=== PATIENT | male | born 2000 | race Two or more races ===

== ENCOUNTER 2023-08-26 05:44 | Observation (INO) ==
--- NOTE | 2023-08-26 06:29 | Emergency Department Note ---
Impression & Plan Acute appendicitis, Abdominal pain ED Provider Note NAME: QUYEN TELLES AGE: 23 SEX: M : 2000 ARRIVES VIA: Walk-In INFORMANT: Patient ED PROVIDER(S): Fawad Tiwari DO CHIEF COMPLAINT: abdominal pain HPI: Patient is a 23-year-old male who presents to the ER for right lower quadrant abdominal pain which started last night around 9 PM. Worse with twisting, turning, and bending. Denies any headache or change in vision. No chest pain or shortness of breath. Does have some nausea but no vomiting. No dysuria, urgency, or frequency. No previous abdominal surgeries. No other exacerbating or remitting factors. ADDITIONAL HISTORY OBTAINED: Per HPI Chronic Medical/Social Conditions Affecting Care: Per HPI PAST MEDICAL HISTORY:See Below PAST SURGICAL HISTORY:See Below FAMILY HISTORY:See Below SOCIAL HISTORY:See Below HOME MEDICATIONS:See Below ALLERGIES:See Below VITALS:See Below PHYSICAL EXAMINATION: GENERAL: Sitting up in bed, alert, well appearing, well nourished, no distress, non-toxic EYE EXAM: normal conjunctiva. OROPHARYNX:mucous membranes are moist NECK: supple, no nuchal rigidity, no adenopathy, non-tender LUNGS: Clear to auscultation. Normal chest wall mechanics HEART: no murmurs, S1 normal and S2 normal ABDOMEN: abdomen soft, TTP in RLQ, normo-active bowel sounds, no masses, no rebound or guarding. UPPER EXTREMITIES: upper extremities are grossly normal. LOWER EXTREMITIES: No pitting edema. NEURO EXAM: Normal sensorium, cranial nerves II-XII grossly intact, normal speech, no gross weakness of arms, no gross weakness of legs. MEDICAL DECISION MAKING: Patient is a 23-year-old male who presents ER for right lower quadrant abdominal pain which started as described above. IV was established blood work was obtained. Labs show no significant leukocytosis or anemia. BMP with a slightly elevated glucose at 112. LFTs bilirubin was unremarkable. Lipase was normal. UA was clean. CT abdomen pelvis shows acute appendicitis. Patient was given IV fluids and antibiotics. Patient was discussed with general surgery and will be admitted for further workup and taken to the OR by general surgery. Patient was also given IV Toradol. Consults/Care Managements Discussions: Per [facility] Triage Nursing notes reviewed. Limited review of prior medical records performed Vital Signs: reviewed and remarkable for no significant abnormalities Differential diagnosis: Differential diagnoses includes but is not limited to gastritis, peptic ulcer disease, GERD, gallbladder disease, pancreatitis, small bowel obstruction, appendicitis, diverticulitis, hernia, urinary tract infection, torsion, perforation, trauma, infectious. ER treatment provided: See below Diagnostics interpreted by me include EKG and cardiac monitoring as listed below: -Cardiac Monitoring: An order was placed for continuous cardiac monitoring. The monitor shows a rate of 70 with sinus rhythm. -ECG: none -Laboratory studies:Interpreted by me as stated above in MDM and shown below. Imaging studies: Xrays: As interpreted by me:none CTs show: CT abdomen pelvis per my preliminary interpretation showed acute appendicitis CT abdomen pelvis per radiology showed appendicitis Procedures:none Critical Care: None Past Med/Surg History Problem List (Updated 08/26/23 @ 12:39 by Fawad Tiwari DO) Abdominal pain (Acute) Acute appendicitis (Acute) Medical History (Updated 08/26/23 @ 12:39 by Fawad Tiwari DO) Acute appendicitis with localized peritonitis Social History Smoking Status: Never smoker Preferred Language: Tajik Feels Safe at Home: Yes Allergies Allergies Allergy/AdvReac Type Severity Reaction Status Date / Time No Known Allergies Allergy Unverified 08/26/23 08:37 Home Meds Home Medications Medication Instructions Recorded Confirmed No Known Home Medications 08/26/23 08/26/23 Results & Data (ED) Vital Signs Vital Signs - 24 hr 08/26/23 05:48 08/26/23 05:56 08/26/23 06:46 Temperature 36.7 C Temperature Source Oral Pulse Rate 71 70 Pulse Rate [Apical] 67 Pulse Rhythm [Apical] Regular Pulse Strength [Apical] Normal Respiratory Rate 18 17 Respiratory Effort / Characteristics Non-Labored Spontaneous Non-Labored Spontaneous Respiratory Depth Normal Normal Respiratory Pattern Regular Regular Blood Pressure 119/79 Blood Pressure [Left Arm] 139/67 Blood Pressure Mean 92 Blood Pressure Mean [Left Arm] 91 Blood Pressure Position Sitting Blood Pressure Position [Left Arm] Sitting Pulse Oximetry 96 97 Oxygen Delivery Method Room Air Room Air Sepsis Recent Fever Within 48 Hours No Sepsis New/Unexplained Change in Mental Status N/A Sepsis Action Taken by Nursing No Action Required 08/26/23 10:16 08/26/23 11:00 08/26/23 12:07 Temperature Temperature Source Pulse Rate 82 51 L Pulse Rate [Apical] 50 L Pulse Rhythm [Apical] Pulse Strength [Apical] Respiratory Rate 16 22 Respiratory Effort / Characteristics Non-Labored Spontaneous Respiratory Depth Normal Respiratory Pattern Blood Pressure 114/74 Blood Pressure [Left Arm] 101/58 L Blood Pressure Mean 87 Blood Pressure Mean [Left Arm] 72 Blood Pressure Position Blood Pressure Position [Left Arm] Pulse Oximetry 99 97 Oxygen Delivery Method Room Air Room Air Sepsis Recent Fever Within 48 Hours Sepsis New/Unexplained Change in Mental Status Sepsis Action Taken by Nursing Laboratory Data 08/26/23 06:03 08/26/23 06:03 Lab Results 08/26/23 08/26/23 Range/Units 06:03 06:30 WBC 10.46 (4.8-10.8) K/ul RBC 5.14 (4.70-6.10) M/uL Hgb 14.7 (14.0-18.0) g/dl Hct 42.7 (42.0-52.0) % MCV 83.1 (80.0-100.0) fL MCH 28.6 (25.0-34.0) pg MCHC 34.4 (32.0-36.0) g/dL RDW Std Deviation 35.3 L (36.4-46.3) fL RDW Coeff of [place]rm[place] 11.6 (11.5-14.5) % Plt Count 186 (130-400) K/uL MPV 10.1 (9.4-12.4) fL Immature Gran % (Auto) 0.2 % Neut % (Auto) 77.9 % Lymph % (Auto) 13.1 % [place] % (Auto) 5.8 % Eos % (Auto) 2.5 % Baso % (Auto) 0.5 % Neut # (Auto) 8.15 H (1.40-6.50) K/uL Lymph # (Auto) 1.37 (1.20-3.40) K/uL [place] # (Auto) 0.61 H (0.11-0.59) K/uL Eos # (Auto) 0.26 (0.00-0.50) K/uL Baso # (Auto) 0.05 (0.00-0.20) K/uL Immature Gran # (Auto) 0.02 (0.01-0.20) K/uL Sodium 137 (136-145) mmol/L Potassium 3.7 (3.5-5.1) mmol/L Chloride 102 (98-107) mmol/L Carbon Dioxide 29 (21-32) mmol/L Anion Gap 6 (3-11) BUN 11 (6-23) mg/dl Creatinine 1.18 (0.6-1.4) mg/dl Est Cr Clr Drug Dosing 100.3 ml/min Est GFR ( Amer) 98.8 ml/min Est GFR (Non-Af Amer) 85.3 ml/min BUN/Creatinine Ratio 9.3 L (10-20) Glucose 112 H (70-99(Fasting)) mg/dl Calcium 9.8 (8.6-10.3) mg/dl Total Bilirubin 0.8 (0.2-1.0) mg/dl AST 16 (13-39) U/L ALT 14 (7-52) U/L Alkaline Phosphatase 44 (34-104) U/L Total Protein 7.1 (6.0-8.3) gm/dl Albumin 4.7 (3.4-5.0) gm/dl Globulin 2.4 L (2.5-4.0) gm/dl Albumin/Globulin Ratio 2.0 (0.9-2) Lipase 9 L (11-82) U/L Urine Color Yellow Urine Appearance Clear (Clear) Urine pH 6.0 (4.5-7.5) Ur Specific [place] 1.025 (1.000-1.030) Urine Protein Negative (Negative) Urine Glucose (UA) Negative (Negative) Urine Ketones Negative (Negative) Urine Blood Negative (Negative) Urine Nitrite Negative (Negative) Urine Bilirubin Negative (Negative) Urine Urobilinogen Negative (Negative) Ur Leukocyte Esterase Negative (Negative) Administered Medications Cefoxitin Sodium (Mefoxin) 2,000 mg in 60 mls @ 100 mls/hr IV PREOP WINTER Stop: 08/27/23 05:59 Last Admin: 08/26/23 10:28 Dose: Not Given Documented By: SUKUMAR Lactated Ringer's (Lr) 1,000 mls @ 125 mls/hr IV .Q8H WINTER Stop: 09/25/23 10:29 Last Admin: 08/26/23 10:30 Dose: 125 mls/hr Documented By: SUKUMAR Discontinued Medications Sodium Chloride (Nss) 1,000 mls @ 999 mls/hr IV .Q1H1M ONE Stop: 08/26/23 07:23 Last Infusion: 08/26/23 07:32 Dose: Infused Documented By: Admin: 08/26/23 06:31 Dose: 999 mls/hr Documented By: DELVIN Cefoxitin Sodium (Mefoxin) 2,000 mg in 60 mls @ 100 mls/hr IV NOW STA Stop: 08/26/23 09:07 Last Infusion: 08/26/23 09:14 Dose: Infused Documented By: Admin: 08/26/23 08:36 Dose: 100 mls/hr Documented By: SUKUMAR Ioversol (Optiray 320 100ml) 90 ml IV ONCE ONE Stop: 08/26/23 06:41 Last Admin: 08/26/23 06:40 Dose: 90 ml Documented By: SYDNEE Ketorolac Tromethamine (Ketorolac Tromethamine 15 Mg/Ml Vial) 10 mg IV NOW ONE Stop: 08/26/23 06:24 Last Admin: 08/26/23 06:31 Dose: 10 mg Documented By: DELVIN Imaging Data Radiologist's Impression: Abdomen/Pelvis CT 08/26/23 06:[address] WITH IV CONTRAST CT DOSE: 529.05 mGy.cm HISTORY: Acute right lower quadrant abdominal pain rlq abd pain TECHNIQUE: Multiaxial CT images of the abdomen and pelvis were performed following the IV administration of 90 cc of Optiray, A dose lowering technique was utilized adhering to the principles of ALARA. COMPARISON STUDY: None. FINDINGS: The lung bases are clear. Spleen is mildly enlarged at 13.6 cm. The liver, gallbladder, pancreas, and adrenal glands are within normal limits. There are a few left-sided renal cysts. No hydronephrosis. Decompressed urinary bladder. Dilated fluid-filled appendix measures 8 mm transversely with wall thickening and mucosal hyperemia. Trace free fluid within the abdominal right lower quadrant. No abscess. Punctate appendicolith. No bowel wall thickening or obstruction. The pelvic organs are unremarkable. No suspicious lytic or blastic osseous lesions. IMPRESSION: Acute appendicitis with subcentimeter appendicolith. No pneumoperitoneum or abscess. ACT 112: Negative or not required by law. The above report was generated using voice recognition software. It may contain grammatical, syntax or spelling errors. Electronically signed by: Dieudonne Barbour M.D. 08/26/2023 8:35 AM Discharge Plan Visit Data Chief Complaint: Abdominal Pain Stated Complaint: ABD PAIN ED Provider: Fawad Tiwari Discharge Problem: Acute appendicitis, Abdominal pain Forms Stand Alone Forms: [employer] Prescriptions Prescriptions: No Action No Known Home Medications Referrals Referrals: PCP,NO [Physician] - Discharge Problem: Acute appendicitis Qualifiers: Acute appendicitis type: unspecified acute appendicitis type Qualified Code(s): K35.80 - Unspecified acute appendicitis Abdominal pain Qualifiers: Abdominal location: unspecified location Qualified Code(s): R10.9 - Unspecified abdominal pain
[2023-08-26] MEDS: KETOROLAC TROMETHAMINE 15 MG/ML VIAL IV ONE (06:31)
[2023-08-26] MEDS: SODIUM CHLORIDE 0.9% 1,000 ML IV ONE (06:31)
[2023-08-26 06:38] LABS: Basophils # (auto) 0.05 K/uL (0.00-0.20); Basophils % (auto) 0.5 %; Eosinophils # (auto) 0.26 K/uL (0.00-0.50); Eosinophils % (auto) 2.5 %; Hematocrit (blood only) 42.7 % (42.0-52.0); Hemoglobin 14.7 g/dl (14.0-18.0); Immature Granulocytes # (auto) 0.02 K/uL (0.01-0.20); Immature Granulocytes % (auto) 0.2 %; Lymphocytes # (auto) 1.37 K/uL (1.20-3.40); Lymphocytes % (auto) 13.1 %; Mean Corpuscular Hemoglobin 28.6 pg (25.0-34.0); Mean Corpuscular Hgb Conc 34.4 g/dL (32.0-36.0); Mean Corpuscular Volume 83.1 fL (80.0-100.0); Mean Platelet Volume 10.1 fL (9.4-12.4); Monocytes # (auto) 0.61 K/uL (0.11-0.59); Monocytes % (auto) 5.8 %; Neutrophils # (auto) 8.15 K/uL (1.40-6.50); Neutrophils % (auto) 77.9 %; Platelet Count 186 K/uL (130-400); RDW Coefficient of Variation 11.6 % (11.5-14.5); RDW Standard Deviation 35.3 fL (36.4-46.3); Red Blood Count 5.14 M/uL (4.70-6.10); White Blood Count 10.46 K/ul (4.8-10.8)
[2023-08-26] MEDS: OPTIRAY 320 100ml IV ONE (06:40)
[2023-08-26 06:54] LABS: Appearance Urine Clear (Clear); Bilirubin Urine Negative (Negative); Blood Urine Negative (Negative); Color Urine Yellow; Glucose Urine UA Negative (Negative); Ketones Urine Negative (Negative); Leukocyte Esterase Urine Negative (Negative); Nitrite Urine Negative (Negative); Protein Urine Negative (Negative); Specific Gravity Urine 1.025 (1.000-1.030); Urobilinogen Urine Negative (Negative)
[2023-08-26 06:55] LABS: Albumin Level 4.7 gm/dl (3.4-5.0); BUN Creatinine Ratio 9.3 (10-20); Bilirubin,Total 0.8 mg/dl (0.2-1.0); Calcium 9.8 mg/dl (8.6-10.3); Creatinine Clr Calc Pharmacy 100.3 ml/min; Est GFR (African American) 98.8 ml/min; Est GFR (Non-African American) 85.3 ml/min; Globulin 2.4 gm/dl (2.5-4.0); Potassium 3.7 mmol/L (3.5-5.1); Total Protein 7.1 gm/dl (6.0-8.3)
[2023-08-26] MEDS: cefOXitin 2,000 MG/60 ML BAG IV STA (08:36)
--- NOTE | 2023-08-26 08:37 | CT Scan Report ---
ABDOMEN AND PELVIS CT WITH IV CONTRAST CT DOSE: 529.05 mGy.cm HISTORY: Acute right lower quadrant abdominal pain rlq abd pain TECHNIQUE: Multiaxial CT images of the abdomen and pelvis were performed following the IV administrat ion of 90 cc of Optiray, A dose lowering technique was utilized adhering to the principles of ALARA. COMPARISON STUDY: None. FINDINGS: The lung bases are clear. Spleen is mildly enlarged at 13.6 cm. The liver, gallbladder, [place], and adrenal glands are within normal limits. There are a few left-sided renal cysts. No hydron ephrosis. Decompressed urinary bladder. Dilated fluid-filled appendix measures 8 mm transversely with wall thickening and mucosal hyperemia. Trace free fluid within the abdominal right lower quadrant. No abscess. Punctate appendicolith. No david wel wall thickening or obstruction. The pelvic organs are unremarkable. No suspicious lytic or blasti c osseous lesions. IMPRESSION: Acute appendicitis with subcentimeter appendicolith. No pneumoperitoneum or abscess. ACT 112: Negative or not required by law. The above report was generated using voice recognition software. It may contain grammatical, syntax o r spelling errors. Electronically signed by: Dieudonne Barbour M.D. 08/26/2023 8:35 AM
--- NOTE | 2023-08-26 10:15 | History & Physical Report ---
Date of Service August 26, 2023 Assessment & Plan (1) Acute appendicitis with localized peritonitis: Plan: IV zoyn IVF to OR for lap appendectomy History of Present Illness Primary Care Provider: [facility] This is a 23YO who came to ED with right lower quadrant abdominal pain which started last night. He has had some nausea but no vomiting. No dysuria, urgency, or frequency. No previous abdominal surgeries. A CT scan shows acute appendicitis with a fecalith. Allergies Allergy/AdvReac Type Severity Reaction Status Date / Time No Known Allergies Allergy Unverified 08/26/23 08:37 Home Medications Medication Instructions Recorded Confirmed Type No Known Home Medications 08/26/23 08/26/23 History Past Med/Surg History Problem List (Updated 08/26/23 @ 10:16 by Jose Angel Pierson MD) Acute appendicitis with localized peritonitis Social History Smoking Status: Never smoker Preferred Language: Sinhala Feels Safe at Home: Yes Review of Systems + anorexia; no fever and no chills no problem reported no problem reported no cough and no dyspnea no chest pain + abdominal pain and + nausea; no vomiting and no change in bowel habits no dysuria no back pain no problem reported no localized weakness and no generalized weakness no behavioral changes no easy bleeding and no easy bruising Physical Exam Constitutional: WD/WN, vitals as above Eyes: PERRL, conjunctivae normal, anicteric sclerae Neck: trachea midline Respiratory: normal respiratory effort, lungs clear to auscultation Cardiovascular: RRR, no murmur, no edema Gastrointestinal (Abdomen): Inspection/Auscultation: abdomen normal to inspection and normal bowel sounds; abdomen not distended Percussion/Palpation: + abdomen tender, + guarding and abdomen soft; abdomen not rigid Musculoskeletal: Head/Neck/Chest: normocephalic and head atraumatic Skin: no rashes, warm and dry Psychiatric: Orientation: alert ASA Classification ASA ASA1E Results & Data Vital Signs (Past 12 Hours) Vital Signs Temp Pulse Pulse Resp BP BP Pulse Ox 08/26/23 06:46 67 17 139/67 97 08/26/23 05:56 70 08/26/23 05:48 36.7 C 71 18 119/79 96 O2 Del Method 08/26/23 06:46 Room Air 08/26/23 05:56 08/26/23 05:48 Room Air Diagnostic Findings ABDOMEN AND PELVIS CT WITH IV CONTRAST CT DOSE: 529.05 mGy.cm HISTORY: Acute right lower quadrant abdominal pain rlq abd pain TECHNIQUE: Multiaxial CT images of the abdomen and pelvis were performed following the IV administration of 90 cc of Optiray, A dose lowering technique was utilized adhering to the principles of ALARA. COMPARISON STUDY: None. FINDINGS: The lung bases are clear. Spleen is mildly enlarged at 13.6 cm. The liver, gallbladder, pancreas, and adrenal glands are within normal limits. There are a few left-sided renal cysts. No hydronephrosis. Decompressed urinary bladder. Dilated fluid-filled appendix measures 8 mm transversely with wall thickening and mucosal hyperemia. Trace free fluid within the abdominal right lower quadrant. No abscess. Punctate appendicolith. No bowel wall thickening or obstruction. The pelvic organs are unremarkable. No suspicious lytic or blastic osseous lesions. IMPRESSION: Acute appendicitis with subcentimeter appendicolith. No pneumoperitoneum or abscess. Code Status & VTE Plan Code Status Full code VTE Prophylaxis Plan VTE Prophylaxis will be ordered: Yes
[2023-08-26] MEDS ORDERED: MoRPHine SULFATE 2 MG/ML CARP IV PRN (10:16)
[2023-08-26] MEDS ORDERED: ONDANSETRON INJ 2 MG/ML 2 ML VIAL IV PRN (10:16)
[2023-08-26] MEDS ORDERED: MoRPHine SULFATE 4 MG/ML 1 ML CARP\\VIAL IV PRN (10:16)
[2023-08-26] MEDS ORDERED: oxyCODONE/ACETAMINOPHEN 5mg/325mg TAB PO PRN (10:16)
[2023-08-26] MEDS: cefOXitin 2,000 MG/60 ML BAG IV SCH (10:28)
[2023-08-26] MEDS: LACTATED RINGER'S 1,000 ML IV SCH (10:30)
--- NOTE | 2023-08-26 12:29 | Anesthesiology Consultation ---
Date of Service August 26, 2023 Assessment & Plan Chart Review Chart Review: Acceptable Risk for Surgery and Patient NOT seen in Pre Admission Testing Consults Requested none History Surgery Operation Date: 08/26/23 11:30 Proposed Procedures p Laparoscopic Appendectomy - Jose Angel Pierson MD Height/Weight Height: 5 ft 11 in Weight: 74.1 kg Allergies Allergy/AdvReac Type Severity Reaction Status Date / Time No Known Allergies Allergy Unverified 08/26/23 08:37 Medications Home Medications Medication Instructions Recorded Confirmed Last Taken No Known Home Medications 08/26/23 08/26/23 Unknown Active Medications Generic Name Dose Route Start Last Admin Trade Name Freq PRN Reason Stop Dose Admin Cefoxitin Sodium 2,000 mg in 60 mls @ 100 mls/hr 08/26/23 06:00 08/26/23 10:28 Mefoxin IV 08/27/23 05:59 Not Given PREOP WINTER Lactated Ringer's 1,000 mls @ 125 mls/hr 08/26/23 10:30 08/26/23 10:30 Lr IV 09/25/23 10:29 125 mls/hr .Q8H WINTER Administration Past Medical History Medical History (Updated 08/26/23 @ 12:28 by Jacob Ireland MD) Acute appendicitis with localized peritonitis Social History Smoking Status: Never smoker Review of Systems Constitutional: + anorexia; no fever and no chills Eyes: no problem reported Ear, Nose, Mouth, Throat: no problem reported Respiratory: no cough and no dyspnea Cardiovascular: no chest pain Gastrointestinal: + abdominal pain and + nausea; no vomiting and no change in bowel habits Genitourinary (Male): no dysuria Musculoskeletal: no back pain Integumentary: no problem reported Neurologic: no localized weakness and no generalized weakness Psychiatric: no behavioral changes Hematologic / Lymphatic: no easy bleeding and no easy bruising Physical Exam Vital Signs Last Vital Signs Temp 36.7 C 08/26/23 05:48 Pulse 51 L 08/26/23 12:07 Resp 22 08/26/23 11:00 BP 114/74 08/26/23 11:00 Pulse Ox 97 08/26/23 11:00 O2 Del Method Room Air 08/26/23 11:00 Constitutional WD/WN, vitals as above Eyes PERRL, conjunctivae normal, anicteric sclerae Neck trachea midline Respiratory normal respiratory effort, lungs clear to auscultation Cardiovascular RRR, no murmur, no edema Gastrointestinal (Abdomen) Inspection/Auscultation: abdomen normal to inspection and normal bowel sounds; abdomen not distended Percussion/Palpation: + abdomen tender, + guarding and abdomen soft; abdomen not rigid Musculoskeletal Head/Neck/Chest: normocephalic and head atraumatic Skin no rashes, warm and dry Psychiatric Orientation: alert Testing Laboratory Results 08/26/23 06:03 08/26/23 06:03 Urine Color Yellow 08/26/23 06:30 Urine Appearance Clear (Clear) 08/26/23 06:30 Urine pH 6.0 (4.5-7.5) 08/26/23 06:30 Ur Specific [place] 1.025 (1.000-1.030) 08/26/23 06:30 Urine Protein Negative (Negative) 08/26/23 06:30 Urine Glucose (UA) Negative (Negative) 08/26/23 06:30 Urine Ketones Negative (Negative) 08/26/23 06:30 Urine Nitrite Negative (Negative) 08/26/23 06:30 Ur Leukocyte Esterase Negative (Negative) 08/26/23 06:30
[2023-08-26] MEDS ORDERED: fentaNYL citrate PF 100 MCG/2 ML VIAL ONE ×2 (13:04→14:16)
[2023-08-26] MEDS ORDERED: MIDAZOLAM HCL 1 MG/ML 2ML VIAL ONE (13:04)
[2023-08-26] MEDS ORDERED: SUCCINYLCHOLINE CHLORIDE 20 MG/ML 10 ML VIAL IV ONE (13:06)
[2023-08-26] MEDS ORDERED: PROPOFOL IV EMULSION 10 MG/ML 20 ML VIAL IV ONE (13:06)
[2023-08-26] MEDS ORDERED: LIDOCAINE 2% 2 ML VIAL/AMP(20MG/ML) INFIL ONE ×2 (13:11)
[2023-08-26] MEDS ORDERED: ATROPINE SULFATE 0.1 MG/ML 10ML SYR IV PRN (13:37)
[2023-08-26] MEDS ORDERED: DROPERIDOL 5 MG/2 ML VIAL IV PRN (13:37)
[2023-08-26] MEDS ORDERED: ePHEDrine sulfate 50 MG/ML AMP IV PRN (13:37)
[2023-08-26] MEDS ORDERED: ACETAMINOPHEN 1000 MG/100 ML IV IV ONE (13:53)
[2023-08-26] MEDS ORDERED: ROCURONIUM BROMIDE 10 MG/ML 5 ML VIAL IV ONE (14:03)
[2023-08-26] MEDS ORDERED: METOCLOPRAMIDE HCL INJ 5 MG/ML 2 ML VIAL ONE (14:03)
[2023-08-26] MEDS ORDERED: PHENYLEPHRINE 100MCG/ML 10ML SYR IV ONE (14:03)
[2023-08-26] MEDS ORDERED: DEXAMETHASONE SOD INJ 4 MG/ML VIAL ONE (14:03)
[2023-08-26] MEDS ORDERED: ONDANSETRON INJ 2 MG/ML 2 ML VIAL ONE (14:03)
[2023-08-26] MEDS ORDERED: SUGAMMADEX SODIUM 200 MG/2 ML VIAL IV ONE (14:13)
[2023-08-26] MEDS ORDERED: KETOROLAC 30 MG/ML VIAL ONE (14:13)
[2023-08-26] MEDS: BUPIVACAINE/EPINEPHRINE 0.5% MPF 1:200,000 30 ML VIAL ONE (14:18)
--- NOTE | 2023-08-26 14:27 | Operative Report ---
Post Operative Report Pre & Post Diagnosis Operation Date: 08/26/23 11:30 <Acute appendicitis I identified the patient and participated in the time-out.: Yes Procedure Operation Date: 08/26/23 11:30 Laparoscopic appendectomy Surgeon Jose Angel Pierson MD Atm Manager None Estimated Blood Loss 15 Findings Consistent with Post-Op Diagnosis Acute appendicitis Specimens Appendix to pathology Drains None Anesthesia Type General Complications None Indications This is a 23-year-old male seen in the ED after having underwent coronary workup for abdominal pain. CT scan shows acute appendicitis with fecalith. We talked in detail about this and recommended a laparoscopic appendectomy. He understands all the risks in detail. Description of Procedure The patient was taken to the OR and underwent excellent general anesthesia. Their abdomen was prepped and draped in normal sterile fashion. A transverse supraumbilical incision was made, towel clamps were used to create tension on th e abdominal wall as a Varess needle was inserted gently into the peritoneal cavity. Good pneumoperitoneum was achieved to about 15 mmHg pressure. Once this was done, a visualized 11 port was placed in the supraumbilical position. A 12 mm left lower quadrant port , a 5mm suprapubic port , and a 5mm right upper quadrant port were placed in normal fashion. Patient was then placed in head down and rolled to the left. A good diagnostic lap was performed. They had obvious acute appendicitis. The cecum was grasped with an atraumatic grasper. A grasper was then was then used to grasp the tip of the appendix. The mesoappendix was splayed open and a harmonic scalpel was used to take down the mesoappendix. The base of the appendix was identified and an Endo ANDREA stapler was used to transect the appendix at its base. A Endobag was then inserted through the left lower quadrant port and the appendix was placed into the bag, The bag was removed through the left lower quadrant port. The appendix was then sent for pathologic evaluation. Pneumoperitoneum was re-established and the 12 mm port was replaced. Saline was then used to irrigate the abdomen. There was no active bleeding nor any other abnormalities noted in the abdomen. Patient was then placed back in neutral position, the ports were removed and the pneumoperitoneum decompressed. The 12mm port fascia was then closed using a 0 Vicryl. The skin was then anesthetized with 0.5% Marcaine with epinephrine local. Interrupted Vicryl is used to close the skin. The right upper quadrant incision was closed with an interrupted nylon suture. Dermabond was used to reinforce the incisions. Sterile dressings were applied. The patient tolerated procedure without complications was sent to the postop recovery period of [facility]. They will be sent to the floor for the rest of their care. I attest to the content of the Intraoperative Record and any orders documented therein. Any exceptions are noted below.
[2023-08-26] MEDS: fentaNYL citrate PF 100 MCG/2 ML VIAL IV PRN (14:45)
--- NOTE | 2023-08-26 15:06 | Anesthesiology Progress Note ---
Date of Service August 26, 2023 Anesthesia Post Procedure Vital Signs Vital Signs: Temp Pulse Pulse Resp BP BP Pulse Ox 08/26/23 14:55 60 13 106/65 94 08/26/23 14:45 66 17 117/76 100 08/26/23 14:36 36.6 C 68 20 124/70 100 08/26/23 13:00 47 L 14 102/66 08/26/23 12:53 41 L 08/26/23 12:30 50 L 16 08/26/23 12:07 51 L 08/26/23 12:00 48 L 16 94/53 L 08/26/23 11:30 54 L 18 08/26/23 11:00 82 22 114/74 97 08/26/23 10:16 50 L 16 101/58 L 99 08/26/23 06:46 67 17 139/67 97 08/26/23 05:56 70 08/26/23 05:48 36.7 C 71 18 119/79 96 O2 Del Method 08/26/23 14:55 Room Air 08/26/23 14:45 Room Air 08/26/23 14:36 Room Air 08/26/23 13:00 08/26/23 12:53 08/26/23 12:30 08/26/23 12:07 08/26/23 12:00 08/26/23 11:30 08/26/23 11:00 Room Air 08/26/23 10:16 Room Air 08/26/23 06:46 Room Air 08/26/23 05:56 08/26/23 05:48 Room Air Pain Intensity Abdomen: Pain Intensity: 6 Transfer of Care Handoff Completed per policy Notes Mental Status: alert / awake / arousable Patient Amnestic to Procedure: Yes Nausea / Vomiting: adequately controlled Pain: adequately controlled Airway Patency, RR, SpO2: stable & adequate BP & HR: stable & adequate Hydration State: stable & adequate Anesthetic Complications: no major complications apparent and Pt Satisfied with anesthetic care
[2023-08-26] MEDS: cefOXitin 2,000 MG in DEXTROSE 5 % MINI-B 50 ML IV SCH (18:16)
[2023-08-27] MEDS: oxyCODONE/ACETAMINOPHEN 5mg/325mg TAB PO PRN (07:36)
--- NOTE | 2023-08-27 09:22 | Discharge Summary ---
Date of Service August 27, 2023 Admission HPI Per Admitting Provider This is a 23YO who came to ED with right lower quadrant abdominal pain which started last night. He has had some nausea but no vomiting. No dysuria, urgency, or frequency. No previous abdominal surgeries. A CT scan shows acute appendicitis with a fecalith. Admission Exam Per Admitting Provider Constitutional: WD/WN, vitals as above Eyes: PERRL, conjunctivae normal, anicteric sclerae Neck: trachea midline Respiratory: normal respiratory effort, lungs clear to auscultation Cardiovascular: RRR, no murmur, no edema Gastrointestinal (Abdomen): Inspection/Auscultation: abdomen normal to inspection and normal bowel sounds; abdomen not distended Percussion/Palpation: + abdomen tender, + guarding and abdomen soft; abdomen not rigid Musculoskeletal: Head/Neck/Chest: normocephalic and head atraumatic Skin: no rashes, warm and dry Psychiatric: Orientation: alert Principal Diagnosis acute appendicitis Discharge Data Allergies Allergy/AdvReac Type Severity Reaction Status Date / Time No Known Allergies Allergy Unverified 08/26/23 08:37 Consultations 08/26/23 08:32 ED Decision to Admit Stat Procedures Performed Operation Date: 08/26/23 11:30 Actual Procedures p Laparoscopic Appendectomy(Not Applicable) - Jose Angel Pierson MD Ordered Studies 08/26/23 06:23 CT Abd and Pelvis [CT abd pelvis IV con only] Stat Hospital Course (1) Acute appendicitis: The patient admitted through ED with acute appendicitis and take for lap appendectomy. He did well post-op with good pain control, eating well, and discharged POD#1. Total Time Total Time Spent Total Time Spent (In Minutes): 15 Discharge Plan Discharge Items Patient Disposition: Home - Self-Care Reason For Visit: APPENDICITIS Discharge Diagnosis: Acute appendicitis Activity: Per Instructions section Lifting: No more than 25 pounds Bathing: No limitations Bathing Comment: shower today Sexual Activity: When tolerated Exercise/Sports: Wait until after follow-up appointment Driving/Machine Use: Resume 3 days after discharge Weightbearing: Full weightbearing Non-emergency contact: Primary Care Provider and Surgeon Call non-emergency contact if: your pain is concerning for you, your temperature is above 101.5 and your wound pain has increased Follow-up/Referrals: Updyke,Re, PA-C [Physician Management Architect] - [facility] [Primary Care Provider] - Diet: Regular Addtl Attending Provider Instructions: Post-Surgical ~Discharge Instructions Activity Recommendations: - lifting limitation: (20 pounds for 3-4 weeks), - exercise/sex/sports limit: (nonstrenuous for 2 weeks), - driving or machine use limit: (none for 1 week or until pain free and no longer taking narcotic pain medication), - Shower/bathe limit: (may shower) Diet: - Resume previous diet SPECIAL CARE INSTRUCTIONS: - May shower. . Let water run over area and pat dry. No submerging incisions underwater for 2 weeks - Leave surgical glue on incisions, this will fall off on its own. - Call the surgeon's office with any questions or concerns - - (ex. temperature higher than 101 degrees F, excessive bleeding or pain). MEDICATIONS: - Resume previous medications unless instructed otherwise by your surgeon. - May alternate extra strength Tylenol and Ibuprofen as needed for mild to moderate pain -650 mg Tylenol every 6 hours as needed - Ibuprofen 600 mg every 6 hours with food - Percocet 1 every 6 hours, as needed for moderate to severe pain - Recommend daily stool softener (Colace) while taking narcotic pain medication to prevent constipation. Drink plenty of water daily. FOLLOW UP VISIT: - If not already scheduled, please call the office to schedule a two week follow-up appointment. Office number Pending Studies at Discharge: Yes (appendix pathology, will be reviewed at postop visit) Stand-Alone Forms: [facility], Smoking Cessation Medications and DC Order Prescriptions: New oxycodone-acetaminophen [Percocet] 5-325 mg tablet 1 tab PO Q6H PRN (Reason: pain) Qty: 14 0RF Discharge Orders: Discharge Order (Routine); Ordered 08/27/23 Ordered By: Jose Angel Pierson Admission Data Admit Date/Time: 08/26/23 14:30 Attending Provider: Jose Angel Pierson Admit Provider: Jose Angel Pierson Primary Care Provider: [facility] Other Providers: Jose Angel Pierson
== END 2023-08-27 10:06 | disposition home or self-care (01) ==
LOC: ED 05:44 → 3N 05:44